=== PATIENT | male | born 1995 | race Caucasian/White ===

== ENCOUNTER 2017-03-11 23:18 | Emergency (ER) | payer OTHER ==
[~2017-03-11] VITALS: Ht 190.5 cm; Wt 77.6 kg
[2017-03-11 23:24] VITALS: TEMP 36.9; Ht 190.5 cm; Wt 77.6 kg
[2017-03-11] MEDS ORDERED: FEXO-152 PO (23:36)
[2017-03-12 00:09] LABS: BASO % 0.4 %; BASO ABS # 0.04 K/uL (0-0.2); COMPLETE YES; EOS % 3.1 %; HEMATOCRIT 40.2 % (42-52); IG% 0.3 %; LYMPH % 38.9 %; LYMPH ABS # 4.33 K/uL (1.2-3.4); MEAN CELL VOLUME 84.1 fL (80-100); MEAN CORPUSCULAR HEMOGLOBIN 29.5 pg (25-34); MEAN CORPUSCULAR HGB CONC 35.1 g/dl (32-36); MONO % 8.3 %; PLATELET COUNT 218 K/uL (130-400); RED BLOOD COUNT 4.78 M/uL (4.7-6.1); WHITE BLOOD COUNT 11.14 K/uL (4.8-10.8)
[2017-03-12 00:29] LABS: BUN/CREATININE RATIO 11.6 (10-20); CALCIUM 8.3 mg/dl (8.5-10.1); CREATININE 1.2 mg/dl (0.60-1.40); POTASSIUM 3.2 mmol/L (3.5-5.1)
--- NOTE | 2017-03-12 06:33 | DIAGNOSTIC IMAGING REPORT ---
RIGHT HAND MIN 3 VIEWS ROUTINE HISTORY: 21 years-old Male right hand injury. Punched wall. +etoh. Right COMPARISON: None available TECHNIQUE: 3 views of the right hand FINDINGS: No acute fracture, dislocation or significant degenerative changes. Soft tissues are within normal limits without radiopaque foreign body. IMPRESSION: Normal right hand radiographs. The above report was generated using voice recognition software. It may contain grammatical, syntax or spelling errors. Electronically signed by: Thomas Mendoza M.D. 03/12/2017 6:31 AM Dictated Date/Time: 03/12/2017 6:30 AM
[2017-03-12 08:01] VITALS: BP 139/87; PULSE 66; O2SAT 99
--- NOTE | 2017-03-12 22:14 | EMERGENCY ROOM VISIT NOTE ---
History First contact with patient: 23:20 Chief Complaint: LACERATION/CUT (SUT/DERMABOND) Stated Complaint: LACERATION Nursing Triage Summary: Patient punched a window and has superficial laceration to right forearm and right hand. Patient admits to drinking tonight. History of Present Illness The patient is a 21 year old male who presents to the Emergency Room with complaints of injuries to his right hand. The patient was evidently drinking tonight and began to punch a wall and a window. The patient does have blood on his hand and wrist. He is reportedly up-to-date on his tetanus. He denies drug use or other injury. The patient rates his discomfort a 0/10. Review of Systems More than 10 systems were reviewed and otherwise negative with the exception of history of present illness. Past Medical/Surgical History No chronic medical disease Family History No pertinent family history Social History Smoking Status: Never Smoker Occupation Status: [employer] student Current/Historical Medications Scheduled Fexofenadine HCl (Allergy Relief 24Hr), 180 MG PO DAILY Physical Exam Vital Signs Date Time Temp Pulse Resp B/P (MAP) Pulse Ox O2 Delivery O2 Flow Rate FiO2 03/12/17 08:01 66 139/87 99 03/12/17 05:00 66 15 104/66 96 Room Air 03/12/17 04:30 64 17 03/12/17 04:00 60 16 107/65 95 Room Air 03/12/17 03:00 74 03/12/17 02:32 76 16 97/45 95 Room Air 03/12/17 00:35 102 16 139/78 97 Room Air 03/11/17 23:24 36.9 132 16 143/102 99 Room Air 03/11/17 23:23 128 Pain Rating (0-10): 0 Physical Exam VITALS: Vitals are noted on the nurse's note and reviewed by myself. Vital signs stable. GENERAL: Well-developed, well-nourished, white male who appears obviously intoxicated. He is mostly cooperative with the examination. NECK: Supple without nuchal rigidity. No lymphadenopathy. No thyromegaly. Cervical spine is nontender. HEART: Regular rate and rhythm without murmurs gallops or rubs. LUNGS: Clear to auscultation bilaterally without wheezes, rales or rhonchi. No retractions or accessory muscle use. MUSCULOSKELETAL: Mild tenderness appreciated over the palm of the right hand. There is no distinct metacarpal tenderness. Superficial abrasions noted across the right hand to the right forearm without significant laceration. Patient is able to open and close the hand. Hull Molder strength is 5/5. NEURO: Patient was alert and oriented to person place and time. CN II through XII grossly intact. Medical Decision & Procedures ER Provider Diagnostic Interpretation: RIGHT HAND MIN 3 VIEWS ROUTINE HISTORY: 21 years-old Male right hand injury. Punched wall. +etoh. Right COMPARISON: None available TECHNIQUE: 3 views of the right hand FINDINGS: No acute fracture, dislocation or significant degenerative changes. Soft tissues are within normal limits without radiopaque foreign body. IMPRESSION: Normal right hand radiographs. Laboratory Results 03/11/17 23:53 Red Blood Count 4.78, Mean Corpuscular Volume 84.1, Mean Corpuscular Hemoglobin 29.5, Mean Corpuscular Hemoglobin Concent 35.1, Mean Platelet Volume 9.0, Neutrophils (%) (Auto) 49.0, Lymphocytes (%) (Auto) 38.9, Monocytes (%) (Auto) 8.3, Eosinophils (%) (Auto) 3.1, Basophils (%) (Auto) 0.4, Neutrophils # (Auto) 5.47, Lymphocytes # (Auto) 4.33, Monocytes # (Auto) 0.92, Eosinophils # (Auto) 0.35, Basophils # (Auto) 0.04 03/11/17 23:53 Test 03/11/17 23:53 White Blood Count 11.14 K/uL (4.8-10.8) Red Blood Count 4.78 M/uL (4.7-6.1) Hemoglobin 14.1 g/dL (14.0-18.0) Hematocrit 40.2 % (42-52) Mean Corpuscular Volume 84.1 fL (80-100) Mean Corpuscular Hemoglobin 29.5 pg (25-34) Mean Corpuscular Hemoglobin Concent 35.1 g/dl (32-36) Platelet Count 218 K/uL (130-400) Mean Platelet Volume 9.0 fL (7.4-10.4) Neutrophils (%) (Auto) 49.0 % Lymphocytes (%) (Auto) 38.9 % Monocytes (%) (Auto) 8.3 % Eosinophils (%) (Auto) 3.1 % Basophils (%) (Auto) 0.4 % Neutrophils # (Auto) 5.47 K/uL (1.4-6.5) Lymphocytes # (Auto) 4.33 K/uL (1.2-3.4) Monocytes # (Auto) 0.92 K/uL (0.11-0.59) Eosinophils # (Auto) 0.35 K/uL (0-0.5) Basophils # (Auto) 0.04 K/uL (0-0.2) RDW Standard Deviation 38.1 fL (36.4-46.3) RDW Coefficient of Variation 12.4 % (11.5-14.5) Immature Granulocyte % (Auto) 0.3 % Immature Granulocyte # (Auto) 0.03 K/uL (0.00-0.02) Anion Gap 8.0 mmol/L (3-11) Est Creatinine Clear Calc Drug Dose 108.7 ml/min Estimated GFR () 101.0 Estimated GFR (Non- 87.1 BUN/Creatinine Ratio 11.6 (10-20) Calcium Level 8.3 mg/dl (8.5-10.1) Ethyl Alcohol mg/dL 258.0 mg/dl (0-3) ED Course Physical exam and history were performed. Nursing notes, EMR, and Medication List were personally reviewed. Patient appears to have been drinking tonight and punched a wall and window. X- ray of the hand was performed and does not show evidence of acute fracture. The patient's blood work is as above and was reviewed. He does have an elevated alcohol of 258, which clinically is likely contributory to his status here. His wounds were cleansed and dressed as none of them require formal suture closure. The patient was monitored closely here in the department for aspiration. He remained in stable condition for about 8 hours until he was sober. The patient was discharged with instructions as below and invited back to the ER with any new, worsening, or concerning symptoms. The chart was completed utilizing [employer] Speech Voice Recognition Software. Grammatical errors, random word insertions, pronoun errors, and incomplete sentences are an occasional consequence of this system due to software limitations, ambient noise, and hardware issues. Any formal questions or concerns about the content, text, or information contained within the body of this dictation should be directly addressed to the provider for clarification. . Medical Decision Differential diagnosis: Etiologies such as alcohol intoxication, toxicologic, infection, hypoglycemia, electrolyte abnormalities, cardiac sources, intracerebral event, neurologic, as well as others were entertained. Medication Reconcilliation Current Medication List: was personally reviewed by me Blood Pressure Screening Blood pressure disposition: Referred to PCP Impression Primary Impression: Alcohol intoxication Additional Impressions: Superficial abrasion Hand injury Departure Information Dispostion Home / Self-Care Condition GOOD Forms HOME CARE DOCUMENTATION FORM, IMPORTANT VISIT INFORMATION Patient Instructions [facility]: [employer] Students and Alcohol Related Visits, ED Alcohol Intoxication Additional Instructions You were seen and evaluated today on an emergency basis only. This is not a substitute for, or an effort to provide, complete comprehensive medical care. It is not possible to recognize and treat all injuries or illnesses in a single emergency department visit. For this reason it is recommended that you followup with your primary care physician this week for ongoing care and evaluation. For baseline pain relief you may alternate ibuprofen and acetaminophen every 4 hours for pain control. Take 600 mg ibuprofen (Advil) and then 4 hours later take 1000 mg acetaminophen (Tylenol). Do not take more than 3000 mg acetaminophen in a single day. Drink plenty of fluids and remain well hydrated. You are welcome to return to the emergency department anytime with new, worsening, or concerning symptoms. Problem Qualifiers
== END 2017-03-12 08:02 | disposition home or self-care (01) ==
LOC: EDBD 23:18 → C.EDA 23:20
DX: F10.10 Alcohol abuse, uncomplicated (principal); T14.8 Other injury of unspecified body region; S69.90XA Unspecified injury of unspecified wrist, hand and finger(s), initial encounter; X58.XXXA Exposure to other specified factors, initial encounter